=== PATIENT | male | born 1970 | race Caucasian/White ===

== ENCOUNTER 2017-03-12 18:08 | Emergency (ER) | payer MEDICAID, OTHER ==
[2017-03-12] MEDS ORDERED: cefTRIAXone 1,000 MG VIAL IM ONE (18:24)
--- NOTE | 2017-03-12 18:35 | EDM.PDOC ---
ED HPI GENERAL MEDICAL PROBLEM - General Stated Complaint: RT ELBOW INJURY Time Seen by Provider: 03/12/17 18:08 Source of Information: Reports: Patient, Family - History of Present Illness INITIAL COMMENTS - FREE TEXT/NARRATIVE: 46 y.o.w.m. male came to the ed due to swelling and redness of his r elbow for one week, does not remember trauma. denies any other acute medical issue. Onset: Unknown/Unsure Onset Date: 03/06/17 Onset Time: 07:00 Duration: Day(s):, Getting Worse Location: Reports: Upper Extremity, Right Quality: Reports: Burning, Dull, Pressure Severity: Moderate Improves with: Reports: Immobilization Worsens with: Reports: Movement Context: Reports: Trauma (?) Associated Symptoms: Reports: No Other Symptoms - Related Data Allergies Allergy/AdvReac Type Severity Reaction Status Date / Time dust Allergy Cannot Uncoded 03/12/17 19:07 Remember Home Meds: Home Meds Cephalexin [Keflex] 500 mg PO Q6HR #40 cap 03/12/17 [Rx] Sulfamethoxazole/Trimethoprim [Bactrim Ds Tablet] 1 each PO BID #20 tablet 03/12 [Rx] ED ROS GENERAL - Review of Systems Review Of Systems: See Below Constitutional: Reports: No Symptoms HEENT: Reports: No Symptoms Respiratory: Reports: No Symptoms Cardiovascular: Reports: No Symptoms Endocrine: Reports: No Symptoms GI/Abdominal: Reports: No Symptoms : Reports: No Symptoms Musculoskeletal: Reports: Other (r elbow pain) Skin: Reports: Wound, Lesions (r pot elbow) Neurological: Reports: No Symptoms Psychiatric: Reports: No Symptoms Hematologic/Lymphatic: Reports: No Symptoms Immunologic: Reports: No Symptoms ED EXAM, SKIN/RASH Exam: See Below Exam Limited By: No Limitations General Appearance: Alert, WD/WN, Mild Distress Eye Exam: Bilateral Eye: Normal Inspection Ears: Normal External Exam Nose: Normal Inspection Throat/Mouth: Normal Inspection, Normal Lips Head: Atraumatic Neck: Normal Inspection, Supple, Non-Tender Respiratory/Chest: No Respiratory Distress Cardiovascular: Normal Peripheral Pulses, Regular Rate, Rhythm, No Edema Peripheral Pulses: 2+: Femoral (L), Femoral (R) GI/Abdominal: Normal Bowel Sounds (Male) Exam: Deferred Rectal (Males) Exam: Deferred Back Exam: Normal Inspection, Full Range of Motion Extremities: Other (cellulitis r post elbow, tender, swelling) Neurological: Alert, Oriented, CN II-XII Intact, Normal Cognition, Normal Gait Psychiatric: Normal Affect, Normal Mood Skin: Warm, Erythema, Rash (r pos elbow) Location, Skin: Head, Upper Extremity, Right Characteristics: Erythematous Associated features: Warmth, Tenderness, Wwelling Lymphatic: No Adenopathy Course - Vital Signs Text/Narrative:: 46 y.o.w.m. male came to the ed due to swelling and redness of his r elbow for one week, does not remember trauma. denies any other acute medical issue. PE: Possible olecranon bursitis/cellulitis Imaging: Busiditis vs SQ abscess Labs: BNl WBC Bcx resultas are pending Imaging: Olecranon bursitis, cellulitis, dehydration, MRSA? Tx: Rocephin, Bactrim, TD immunization, wound care Reexam: Improved Plan: D/C with instructions Last Recorded V/S: Last Vital Signs Temp 36.8 C 03/12/17 18:40 Pulse 90 03/12/17 20:32 Resp 16 03/12/17 20:32 BP 117/86 03/12/17 20:32 Pulse Ox 98 03/12/17 20:32 - Orders/Labs/Meds Orders: Active Orders 24 hr Category Date Time Status Vaccines to be Administered [RC] PER UNIT ROUTINE Care 03/12/17 19:33 Active Upper Extremity w Cont Rt [CT] Stat Exams 03/12/17 18:26 Taken CULTURE BLOOD [BC] Urgent Lab 03/12/17 18:40 Received CULTURE BLOOD [BC] Urgent Lab 03/12/17 18:45 Received Blood Culture x2 Reflex Set [OM.PC] Urgent Oth 03/12/17 18:18 Ordered Wound Management Education [OM.PC] Routine Oth 03/12/17 18:24 Ordered Labs: Laboratory Tests 03/12/17 03/12/17 Range/Units 18:40 18:40 WBC 9.3 (4.5-12.0) X10-3/uL RBC 4.42 (4.30-5.75) x10(6)uL Hgb 13.4 (11.5-15.5) g/dL Hct 40.2 (30.0-51.3) % MCV 91.0 (80-96) fL MCH 30.2 (27.7-33.6) pg MCHC 33.2 (32.2-35.4) g/dL RDW 13.2 (11.5-15.5) % Plt Count 308 (125-369) X10(3)uL MPV 7.9 (7.4-10.4) fL Neut % (Auto) 69.4 (46-82) % Lymph % (Auto) 20.2 (13-37) % [place] % (Auto) 8.0 (4-12) % Eos % (Auto) 2 (1.0-5.0) % Baso % (Auto) 1 (0-2) % Neut # (Auto) 6.4 (1.6-8.3) # Lymph # (Auto) 1.9 (0.6-5.0) # [place] # (Auto) 0.7 (0.0-1.3) # Eos # (Auto) 0.2 (0.0-0.8) # Baso # (Auto) 0.1 (0.0-0.2) # Sodium 140 (135-145) mmol/L Potassium 3.9 (3.5-5.3) mmol/L Chloride 105 (100-110) mmol/L Carbon Dioxide 29 (23-29) mmol/L BUN 21 H (5-20) mg/dL Creatinine 0.9 (0.6-1.3) mg/dL Est Cr Clr Drug Dosing 91.56 mL/min Estimated GFR (MDRD) > 60 (>60) BUN/Creatinine Ratio 23.3 H (9-20) Glucose 118 H (80-116) mg/dL Calcium 8.9 (8.6-10.2) mg/dL Meds: Medications Discontinued Medications Generic Name Dose Route Start Last Admin Trade Name Freq PRN Reason Stop Dose Admin Ceftriaxone Sodium 1,000 mg 03/12/17 18:24 03/12/17 18:52 Rocephin IM 03/12/17 18:25 1,000 mg ONETIME ONE Administration Diphtheria/Tetanus/Acell Pertussis 0.5 ml 03/12/17 19:33 03/12/17 19:44 Adacel IM 03/12/17 19:34 0.5 ml .ONCE ONE Administration Iopamidol 100 ml 03/12/17 18:51 03/12/17 19:12 Isovue-370 (76%) IV 03/12/17 18:52 100 ml . DIRECTED ONE Administration Trimethoprim/Sulfamethoxazole 1 tab 03/12/17 18:59 03/12/17 19:16 Septra Ds PO 03/12/17 19:00 1 tab ONETIME ONE Administration Departure - Departure Time of Disposition: 20:22 Disposition: Home, Self-Care 01 Condition: Good Clinical Impression: Cellulitis of right elbow Bursitis, olecranon Qualifiers: Laterality: right Qualified Code(s): M70.21 - Olecranon bursitis, right elbow - Discharge Information Prescriptions: Cephalexin [Keflex] 500 mg PO Q6HR #40 cap Sulfamethoxazole/Trimethoprim [Bactrim Ds Tablet] 1 each PO BID #20 tablet Referrals: PCP,None [Primary Care Provider] - Soham Scanlon MD [Physician] - Forms: ED Return to Work/School Form Additional Instructions: Please take the Abx as recommended, please take motrin for pain, please f/u with Orthopedics in next 1-3 days, please come back to the ed if your symptoms get worse acutely. - My Orders Last 24 Hours: My Active Orders 03/12/17 18:18 Blood Culture x2 Reflex Set [OM.PC] Urgent 03/12/17 18:24 Wound Management Education [OM.PC] Routine 03/12/17 18:26 Upper Extremity w Cont Rt [CT] Stat 03/12/17 18:40 CULTURE BLOOD [BC] Urgent 03/12/17 18:45 CULTURE BLOOD [BC] Urgent 03/12/17 19:33 Vaccines to be Administered [RC] PER UNIT ROUTINE - Assessment/Plan Last 24 Hours: My Active Orders 03/12/17 18:18 Blood Culture x2 Reflex Set [OM.PC] Urgent 03/12/17 18:24 Wound Management Education [OM.PC] Routine 03/12/17 18:26 Upper Extremity w Cont Rt [CT] Stat 03/12/17 18:40 CULTURE BLOOD [BC] Urgent 03/12/17 18:45 CULTURE BLOOD [BC] Urgent 03/12/17 19:33 Vaccines to be Administered [RC] PER UNIT ROUTINE
[2017-03-12] MEDS ORDERED: Iopamidol 755 Mg/ML 100 ML Bottle IV ONE (18:51)
[2017-03-12] MEDS ORDERED: Sulfamethoxazole/Trimethoprim 800-160 MG Tab PO ONE (18:59)
[2017-03-12] MEDS ORDERED: Diphtheria,Pertussis(Acell),Tetanus Vaccine 0.5 ML SDV IM ONE (19:33)
[2017-03-12 20:33] VITALS: BP 117/86
== END 2017-03-12 20:40 | disposition home or self-care (01) ==
LOC: FB.ED 18:08
DX: L03.113 Cellulitis of right upper limb (principal); M70.21 Olecranon bursitis, right elbow; Z91.048 Other nonmedicinal substance allergy status
CPT/HCPCS: 36415; 73201; 80048; 85025; 87040; 90715; 96372; 99284; A4217; A9270; J0696; Q9967; 94640